=== PATIENT | female | born 1960 | race Caucasian/White ===

== ENCOUNTER 2016-06-17 23:28 | Emergency (ER) | payer MEDICARE ==
[2016-06-17 23:31] VITALS: BP 161/77; PULSE 83; RESP 16; TEMP 98.8; O2SAT 96
[2016-06-18] MEDS ORDERED: predniSONE 20 MG TAB PO ONE
[2016-06-18] MEDS ORDERED: AZITHROMYCIN 250 MG TAB PO ONE
--- NOTE | 2016-06-18 00:02 | PD ---
HPI Chief Complaint: Cold / Flu Symptoms Time Seen by Provider: 23:54 Travel History International Travel<30 days: No Contact w/Intl Traveler<30days: No Traveled to known affect area: No History of Present Illness HPI 55-year-old white female presents to emergency department with complains of cough and shortness of breath. She's been sick now for the past 4 days. It started off with runny nose, congestion and cough. Down the last 2 days she's noted increasing shortness of breath, wheezing, posttussive emesis and general malaise. She grimaces that this is similar to when she had bronchitis last year. She used her old inhaler which helped only mildly. She's had associated decreased appetite, mild sore throat and diarrhea. She denies any fever chills. No ear pain, abdominal pain, dysuria, frequency or rashes. PFSH Past Medical History Cancer: Yes (BREAST 2000) Cardiac Catheterization: Yes (x1) Chemotherapy: Yes Immunizations Current: Yes Radiation Therapy: Yes Tetanus Vaccination: > 5 Years Influenza Vaccination: Yes ?: Not Past Surgical History Abdominal Surgery: Yes (BILATERAL OOPHERECTOMY) Section: Yes (X1) Cholecystectomy: Yes Other Surgery: Yes (TRAM FLAP) Social History Alcohol Use: No Tobacco Use: No Substance Use: No Allergies-Medications (Allergen,Severity, Reaction): Coded Allergies: Sulfa (Verified Allergy, Severe, Hives, 06/17/16) Review of Systems Except as stated in HPI: all other systems reviewed are Neg Physical Exam Narrative GENERAL: Well-developed, well-nourished in no acute distress. Nontoxic appearing. HEAD: Normocephalic, atraumatic. EYES: Pupils equal round and reactive. Extraocular motions intact. No scleral icterus. No injection or drainage. ENT: TMs clear without erythema. The external auditory canals clear. Nose: clear . Posterior pharynx is pink and moist. No tonsillar edema or exudate. Uvula midline. Airway patent. NECK: Trachea midline.Supple, nontender, moves head freely. No central bony tenderness or spasm. CARDIOVASCULAR: Regular rate and rhythm without murmurs, gallops, or rubs. RESPIRATORY: Few rhonchi with few fine extremities. No Rales. No respiratory distress. GASTROINTESTINAL: Abdomen soft, non-tender, nondistended. No hepato-splenomegaly , or palpable masses. No guarding. EXTREMITIES: No clubbing, cyanosis, or edema. No joint tenderness, effusion, or edema noted. BACK: Nontender without deformity or crepitance. No flank tenderness. Data Data Last Documented VS Vital Signs Date Time Temp Pulse Resp B/P Pulse Ox O2 Delivery O2 Flow Rate FiO2 06/17/16 23:31 98.8 83 16 161/77 96 Room Air Orders Chest, Pa & Lat (06/17/16 23:51) Prednisone (Deltasone) (06/18/16 00:00) Azithromycin (Zithromax) (06/18/16 00:00) MDM Medical Decision Making Medical Screen Exam Complete: Yes Emergency Medical Condition: Yes Medical Record Reviewed: Yes Interpretation(s) Chest x-ray: Negative for infiltrate. Differential Diagnosis MDM: High Differential diagnoses: Pneumonia, bronchitis, URI, asthma, RAD, legionnaire's disease, SARS, ARDS, influenza, bronchiolitis, RSV,PE,CHF Narrative Course Patient is given prednisone 40 mg and Zithromax 500 mg by mouth. X-rays negative for infiltrate. This is bronchitis, RAD Diagnosis Primary Impression: Bronchitis Additional Impression: Reactive airway disease Qualified Code: J45.909 - Reactive airway disease, unspecified asthma severity , uncomplicated Patient Instructions: General Instructions Additional Instructions: Rest. Increase fluids. Tylenol and Advil. Robitussin-DM. Zithromax, prednisone, and albuterol. Followup with your Dr. in one week. Return to the ER for any problems. Med/Other Pt SpecificInfo: Prescription(s) given Disposition: 01 DISCHARGE HOME Condition: Stable Salvatore Vergara June 18, 2016 00:02
[2016-06-18] MEDS ORDERED: ZITH250T PO (00:03)
[2016-06-18] MEDS ORDERED: ALBU6.7H INH (00:03)
[2016-06-18] MEDS ORDERED: PRED-503 PO (00:03)
--- NOTE | 2016-06-18 00:42 | RADRPT ---
EXAM DATE/TIME: 06/17/2016 23:59 [facility] COMPARISON: No previous studies available for comparison. INDICATIONS : Cough. MEDICAL HISTORY : Myocardial infarction. Carcinoma, breast. SURGICAL HISTORY : Coronary artery stent. ENCOUNTER: Initial ACUITY: 2 days PAIN SCORE: 3/10 LOCATION: Bilateral chest FINDINGS: PA and lateral views of the chest demonstrate the lungs to be symmetrically aerated without evidence of mass, infiltrate or effusion. The cardiomediastinal contours are unremarkable. Osseous structure s are intact. CONCLUSION: 1. No acute cardiopulmonary disease. Roverto Guajardo MD on June 18, 2016 at 0:40 Board Certified Radiologist. This report was verified electronically.
== END 2016-06-18 00:34 | disposition home or self-care (01) ==
LOC: NEPK 23:28
DX: J40 Bronchitis, not specified as acute or chronic (principal); J45.909 Unspecified asthma, uncomplicated; R53.81 Other malaise; R07.0 Pain in throat; R19.7 Diarrhea, unspecified; Z85.3 Personal history of malignant neoplasm of breast; Z86.79 Personal history of other diseases of the circulatory system
CPT/HCPCS: 71020; 99283; J7512

== ENCOUNTER 2016-08-24 05:22 | Emergency (ER) | payer MEDICARE, OTHER ==
[~2016-08-24] VITALS: Ht 165.1 cm; Wt 78.0 kg
[~2016-08-24 05:22] MED LIST: ALBU6.7H INH; PRED-503 PO; ZITH250T PO
[2016-08-24 05:24] VITALS: BP 193/94; PULSE 69; RESP 16; TEMP 97.5; O2SAT 100
[2016-08-24] MEDS ORDERED: SODIUM CHLOR 0.9% 1000 ML INJ 1,000 ML IV ONE (05:28)
[2016-08-24] MEDS ORDERED: KETOROLAC TROMETHAMINE 30 MG/ML (IVP) VIAL IVP ONE (05:30)
[2016-08-24] MEDS ORDERED: ONDANSETRON HCL 4 MG/2 ML VIAL IVP ONE (05:30)
[2016-08-24] MEDS ORDERED: HYDROmorphone HCL PF 1 MG/ML VIAL IVS ONE (05:30)
--- NOTE | 2016-08-24 05:32 | PD ---
HPI Chief Complaint: Flank/Kidney Pain Time Seen by Provider: 05:28 Travel History International Travel<30 days: No Contact w/Intl Traveler<30days: No Traveled to known affect area: No History of Present Illness HPI C/O LT FLANK PAIN, RADIATING TO FRONT, [place]ARP, 9/10, ASSOC WITH NAUSEA PFSH Past Medical History Cancer: Yes (BREAST 2000) Cardiac Catheterization: Yes (x1) Chemotherapy: Yes Immunizations Current: Yes Radiation Therapy: Yes Past Surgical History Abdominal Surgery: Yes (BILATERAL OOPHERECTOMY) Section: Yes (X1) Cholecystectomy: Yes Other Surgery: Yes (TRAM FLAP) Social History Alcohol Use: No Tobacco Use: No Substance Use: No Allergies-Medications (Allergen,Severity, Reaction): Coded Allergies: Sulfa (Verified Allergy, Severe, Hives, 08/24/16) Reported Meds & Prescriptions Reported Meds & Active Scripts Active Zofran Odt (Ondansetron Odt) 4 Mg Tab 4 Mg SL Q6HR PRN Lortab (Hydrocodone-Acetaminophen) 7.5-325 Mg Tab 1 Tab PO Q6H PRN Flomax (Tamsulosin HCl) 0.4 Mg Cap 0.4 Mg PO HS Reported Buspirone (Buspirone HCl) 10 Mg Tab 10 Mg PO DAILY Imitrex (Sumatriptan Succinate) 50 Mg Tab 50 Mg PO ONCE PRN If a satisfactory response has not been obtained at 2 hours, a second dose may be administered Review of Systems Except as stated in HPI: all other systems reviewed are Neg Genitourinary: Positive: Flank Pain Physical Exam Narrative GENERAL: SKIN: Warm and dry. HEAD: Atraumatic. Normocephalic. EYES: Pupils equal and round. No scleral icterus. No injection or drainage. ENT: No nasal bleeding or discharge. Mucous membranes pink and moist. NECK: Trachea midline. No JVD. CARDIOVASCULAR: Regular rate and rhythm. RESPIRATORY: No accessory muscle use. Clear to auscultation. Breath sounds equal bilaterally. GASTROINTESTINAL: Abdomen soft, non-tender, nondistended. Hepatic and splenic margins not palpable. MUSCULOSKELETAL: Extremities without clubbing, cyanosis, or edema. No obvious deformities. NEUROLOGICAL: Awake and alert. No obvious cranial nerve deficits. Motor grossly within normal limits. Five out of 5 muscle strength in the arms and legs. Normal speech. PSYCHIATRIC: Appropriate mood and affect; insight and judgment normal. Data Data Last Documented VS Vital Signs Date Time Temp Pulse Resp B/P Pulse Ox O2 Delivery O2 Flow Rate FiO2 08/24/16 05:24 97.5 69 16 193/94 100 Room Air Orders Complete Blood Count With Diff (08/24/16 05:28) Comprehensive Metabolic Panel (08/24/16 05:28) Urinalysis - C+S If Indicated (08/24/16 05:28) Ct Abd/Pel W/O Iv Contrast (08/24/16 05:28) Ecg Monitoring (08/24/16 05:28) Iv Access Insert/Monitor (08/24/16 05:28) Ketorolac Inj (Toradol Inj) (08/24/16 05:30) Ondansetron Inj (Zofran Inj) (08/24/16 05:30) Sodium Chlor 0.9% 1000 Ml Inj (Ns 1000 M (08/24/16 05:28) Hydromorphone Pf Inj (Dilaudid Pf Inj) (08/24/16 05:30) Lipase (08/24/16 05:28) Metoclopramide Inj (Reglan Inj) (08/24/16 06:30) Ketorolac Inj (Toradol Inj) (08/24/16 06:45) Labs Laboratory Tests Test 08/24/16 05:40 White Blood Count 6.8 TH/MM3 Red Blood Count 4.16 MIL/MM3 Hemoglobin 12.3 GM/DL Hematocrit 36.8 % Mean Corpuscular Volume 88.6 FL Mean Corpuscular Hemoglobin 29.6 PG Mean Corpuscular Hemoglobin 33.4 % Concent Red Cell Distribution Width 14.0 % Platelet Count 253 TH/MM3 Mean Platelet Volume 8.6 FL Neutrophils (%) (Auto) 60.2 % Lymphocytes (%) (Auto) 28.9 % Monocytes (%) (Auto) 8.8 % Eosinophils (%) (Auto) 1.3 % Basophils (%) (Auto) 0.8 % Neutrophils # (Auto) 4.1 TH/MM3 Lymphocytes # (Auto) 2.0 TH/MM3 Monocytes # (Auto) 0.6 TH/MM3 Eosinophils # (Auto) 0.1 TH/MM3 Basophils # (Auto) 0.1 TH/MM3 CBC Comment DIFF FINAL Differential Comment Sodium Level 142 MEQ/L Potassium Level 3.8 MEQ/L Chloride Level 109 MEQ/L Carbon Dioxide Level 29.4 MEQ/L Anion Gap 4 MEQ/L Blood Urea Nitrogen 19 MG/DL Creatinine 0.81 MG/DL Estimat Glomerular Filtration 74 ML/MIN Rate Random Glucose 108 MG/DL Calcium Level 9.0 MG/DL Total Bilirubin 0.3 MG/DL Aspartate Amino Transf 25 U/L (AST/SGOT) Alanine Aminotransferase 32 U/L (ALT/SGPT) Alkaline Phosphatase 96 U/L Total Protein 7.3 GM/DL Albumin 3.9 GM/DL Lipase 229 U/L [facility] Medical Decision Making Medical Screen Exam Complete: Yes Emergency Medical Condition: Yes Medical Record Reviewed: Yes Differential Diagnosis PYELO V UTI V KIDNEY STONES Narrative Course ON EVALUATION NO LEUKOCYTOSIS, CT SHOWS RENAL STONE, PT TOLERATING PO, PAIN IS MUCH MORE UNDER CONTROL WILL D/C Diagnosis Primary Impression: URETEROLITHIASIS LEFT Patient Instructions: General Instructions, Kidney Stones (ED) Scripts Ondansetron Odt (Zofran Odt)4 Mg Tab4 Mg SL Q6HR PRN (Nausea/Vomiting) #12 TAB Prov:Drew Zhu MD 08/24/16 Hydrocodone-Acetaminophen (Lortab)7.5-325 Mg Tab1 Tab PO Q6H PRN (PAIN) #20 TAB Prov:Drew Zhu MD 08/24/16 Tamsulosin (Flomax)0.4 Mg Cap0.4 Mg PO HS #7 CAP Prov:Drew Zhu MD 08/24/16 Disposition: 01 DISCHARGE HOME Condition: Stable Drew Zhu MD Aug 24, 2016 05:32
[2016-08-24] MEDS ORDERED: IMIT50TA PO (05:53)
[2016-08-24] MEDS ORDERED: BUSP10TA PO (05:55)
[2016-08-24 06:07] LABS: AUTOMATED NEUTROPHIL # 4.1 TH/MM3 (1.8-7.7); BASOPHIL # 0.1 TH/MM3 (0-0.2); BASOPHIL % 0.8 % (0.0-2.0); EOSINOPHIL # 0.1 TH/MM3 (0-0.4); EOSINOPHIL % 1.3 % (0.0-4.0); HEMATOCRIT 36.8 % (35.0-46.0); HEMO FLAGS DIFF FINAL; LYMPH % 28.9 % (9.0-44.0); MEAN CELL VOLUME 88.6 FL (80.0-100.0); MEAN CORPUSCULAR HEMOGLOBIN 29.6 PG (27.0-34.0); MEAN CORPUSCULAR HGB CONC 33.4 % (32.0-36.0); MONO % 8.8 % (0.0-8.0); NEUT % 60.2 % (16.0-70.0); PLATELET COUNT 253 TH/MM3 (150-450); RED BLOOD COUNT 4.16 MIL/MM3 (4.00-5.30); WHITE BLOOD COUNT 6.8 TH/MM3 (4.0-11.0)
--- NOTE | 2016-08-24 06:18 | RADRPT ---
EXAM DATE/TIME: 08/24/2016 06:05 [facility] COMPARISON: No previous studies available for comparison. INDICATIONS : Left flank pain. ORAL CONTRAST: No oral contrast ingested. RADIATION DOSE: 8.50 CTDIvol (mGy) MEDICAL HISTORY : Carcinoma, breast. Cardiovascular disease SURGICAL HISTORY : Cholecystectomy. Bilateral ooperectomy ENCOUNTER: Initial ACUITY: 1 day PAIN SCALE: 7/10 LOCATION: Left flank TECHNIQUE: Volumetric scanning of the abdomen and pelvis was performed. Using automated exposure control and ad justment of the mA and/or kV according to patient size, radiation dose was kept as low as reasonably achievable to obtain optimal diagnostic quality images. DICOM format image data is available electro nically for review and comparison. FINDINGS: LOWER LUNGS: The visualized lower lungs are clear. LIVER: Homogeneous density without lesion. There is no dilation of the biliary tree. Cholecystectomy clips. SPLEEN: Normal size without lesion. PANCREAS: Within normal limits. KIDNEYS: Normal in size and shape. There is no mass or hydronephrosis on the right. Mild prominence of left c ollecting system secondary to a distal left ureteral calculus measuring 2-3 mm. There is a a 3 mm and 1 mm nonobstructing left renal calculus and 4 mm nonobstructing right renal calculus. ADRENAL GLANDS: Within normal limits. VASCULAR: There is no aortic aneurysm. BOWEL/MESENTERY: The stomach, small bowel, and colon demonstrate no acute abnormality. There is no free intraperitone al air or fluid. ABDOMINAL WALL: Within normal limits. RETROPERITONEUM: There is no lymphadenopathy. BLADDER: No wall thickening or mass. REPRODUCTIVE: Within normal limits. INGUINAL: There is no lymphadenopathy or hernia. MUSCULOSKELETAL: Within normal limits for patient age. CONCLUSION: 1. Mild obstructive uropathy on the left secondary to a distal left ureteral calculus measuring 2- 3 mm. 2. Nonobstructing bilateral renal calculi. 3. Status post cholecystectomy. Stefan Slade MD on August 24, 2016 at 6:13 Board Certified Radiologist. This report was verified electronically.
[2016-08-24] MEDS ORDERED: ZOFR4TAB3 SL (06:27)
[2016-08-24] MEDS ORDERED: HYDR-3534 PO (06:27)
[2016-08-24] MEDS ORDERED: TAMS5CAP PO (06:27)
[2016-08-24 06:29] LABS: ALT (GPT) 32 U/L (10-53); ANION GAP 4 MEQ/L (5-15); AST (GOT) 25 U/L (15-37); BICARBONATE 29.4 MEQ/L (21.0-32.0); BLOOD UREA NITROGEN 19 MG/DL (7-18); CHLORIDE 109 MEQ/L (98-107); GLOMERULAR FILTRATION RATE 74 ML/MIN (>89); POTASSIUM 3.8 MEQ/L (3.5-5.1); SODIUM (NA) 142 MEQ/L (136-145)
[2016-08-24] MEDS ORDERED: METOCLOPRAMIDE HCL 10 MG/2 ML VIAL IV PUSH ONE (06:30)
[2016-08-24 06:31] LABS: ALKALINE PHOSPHATASE 96 U/L (45-117); TOTAL BILIRUBIN ADULT 0.3 MG/DL (0.2-1.0)
[2016-08-24] MEDS ORDERED: KETOROLAC TROMETHAMINE 30 MG/ML (IVP) VIAL IV PUSH ONE (06:45)
[2016-08-24 07:12] LABS: BLOOD, URINE SMALL (NEG); CALCIUM OXALATE CRYSTALS,URINE MANY /hpf; COMMENT (UR) CULT NOT INDICATED; CULTURE IF INDICATED CULT NOT INDICATED; GLUCOSE,URINE NEG (NEG); KETONE, URINE NEG (NEG); MUCUS URINE FEW /lpf (OCC); NITRITE,URINE NEG (NEG); PH, URINE 5.5 (5.0-8.5); SQUAMOUS EPITHELIAL CELL URINE 4 /hpf (0-5); URINE COLOR YELLOW (YELLW/STRAW)
[2016-08-24 08:32] VITALS: BP 122/70
== END 2016-08-24 08:47 | disposition home or self-care (01) ==
LOC: NEPC 05:22
DX: N20.1 Calculus of ureter (principal); N20.0 Calculus of kidney
CPT/HCPCS: 74176; 80053; 81001; 83690; 85025; 96374; 96375; 96376; 99285; J1170; J1885; J2405; J2765; J7030